=== PATIENT | male | born 1965 | race Caucasian/White ===

== ENCOUNTER 2017-02-24 22:31 | Emergency (ER) | payer OTHER ==
[2017-02-24 22:39] VITALS: BP 141/96; PULSE 76; RESP 16; TEMP 98.1; O2SAT 94
[2017-02-24] MEDS ORDERED: TDAP ADULT 0.5 ML INJ (BOOSTRIX) IM ONE (22:40)
--- NOTE | 2017-02-24 22:41 | EDPHY ---
H & P Stated Complaint: cut l index finger with band saw HPI/ROS: HPI CHIEF COMPLAINT: Left Index finger laceration HISTORY OF PRESENT ILLNESS: Patient very pleasant 51-year-old male, presents emergency room with a distal tip left index finger laceration after using a band saw this evening. He was cutting metal. Denies any other areas of injury. Tetanus shot is not up-to-date will need to be updated. Sustained a 2 cm distal tip left index finger laceration. Right-hand dominant. Patient declined x-ray here in the emergency room specifically declined x-ray left index finger for foreign body. Patient copiously washed out his wound prior to arrival. Past Medical History: No significant medical history Past Surgical History: No significant surgical history Social History: Denies daily use drugs alcohol tobacco products. Family History: Noncontributory ROS REVIEW OF SYSTEMS: A comprehensive 10 point review of systems is otherwise negative aside from elements mentioned in the history of present illness. Exam Constitutional triage nursing summary reviewed, vital signs reviewed, awake/ alert. Eyes normal conjunctivae and sclera, EOMI, PERRLA. HENT normal inspection, atraumatic, moist mucus membranes, no epistaxis, neck supple/ no meningismus, no raccoon eyes. Respiratory clear to auscultation bilaterally, normal breath sounds, no respiratory distress, no wheezing. Cardiovascular rate normal, regular rhythm, no murmur, no edema, distal pulses normal. Gastrointestinal soft, non-tender, no rebound, no guarding, normal bowel sounds, no distension, no pulsatile mass. Genitourinary no CVA tenderness. Musculoskeletal no midline vertebral tenderness, full range of motion, no calf swelling, no tenderness of extremities, no meningismus, good pulses, neurovascularly intact. Skin left index finger: 2 cm laceration present at the distal aspect of the left index finger. Very vascular. No arterial injury. No tendon injury. No obvious bony involvement. Wound was explored copiously no foreign body seen. Wound was copiously irrigated. Full range of motion. Neurovascular intact. No loss of sensation. Good cap refill. Neurologic awake, alert and oriented x 3, AAOx3, moves all 4 extremities equally, motor intact, sensory intact, CN II-XII intact, normal cerebellar, normal vision, normal speech. Psychiatric normal mood/affect. Heme/Lymph/Immune no lymphadenopathy. Differential Diagnosis: Includes but is not limited to in a particular order left index finger laceration, bony involvement, foreign body Medical Decision Making: Plan for this patient washout the wound copiously explored for foreign body, and suture close. Tetanus shot will additionally need to be updated. Recommend x-ray foreign body evaluation and bony vomit however patient has declined x-ray. Re-evaluation: Laceration Repair Procedure: Verbal Consent was obtained, Under sterile conditions, The patient had lidocaine with epinephrine used approximately 2ccs to local anesthetize the left index finger 2 cm Laceration. The wound was copiously irrigated with sterile fluid, the wound was explored for foreign bodies there were none visualized, the wound was explored with a sterile glove to the base. There are no deep structures involved, including no arterial injury. TWO 6.O PROLENE interrupted Sutures were placed in this patient's laceration. He had good close approximation of the wound edges. He Tolerated this well. 2301: Neurovascularly intact. Good cap refill. No foreign bodies visualized. Hemostasis appropriate. Patient is been dressed. And placed in a cage splint of his left index finger cage splint. For protection. Patient understands to have sutures removed 14 days. Watch closely for infection. Keep it protected. He understands return emergency room if there is any worsening symptoms questions or concerns. Source: Patient - Personal History Current Tetanus/Diphtheria Vaccine: No Current Tetanus Diphtheria and Acellular Pertussis (TDAP): No - Medical/Surgical History Hx Asthma: No Hx Chronic Respiratory Disease: No Hx Diabetes: No Hx Cardiac Disease: No Hx Renal Disease: No Hx Cirrhosis: No Hx Alcoholism: No Hx HIV/AIDS: No Hx Splenectomy or Spleen Trauma: No Other PMH: blepharospasm,med hx-kidney stones. surg-charito - Social History Smoking Status: Never smoked Constitutional: Initial Vital Signs Temperature (C) 36.7 C 02/24/17 22:38 Heart Rate 76 02/24/17 22:38 Respiratory Rate 16 02/24/17 22:38 Blood Pressure 141/96 H 02/24/17 22:38 O2 Sat (%) 94 02/24/17 22:38 O2 Delivery Mode Room Air Allergies/Adverse Reactions: No Known Allergies Allergy (Verified 07/06/15 08:36) Home Medications: Medication Instructions Recorded NK [No Known Home Meds] 02/24/17 Medical Decision Making - Data Points Medications Given: Discontinued Medications Diphtheria/Tetanus/Acell Pertussis (Boostrix) 0.5 ml IM .ONCE ONE Stop: 02/24/17 22:41 Last Admin: 02/24/17 22:43 Dose: 0.5 ml Departure - Departure Disposition: Home, Routine, Self-Care Clinical Impression: Laceration Condition: Good Instructions: Laceration (ED), Care For Your Stitches (ED) Additional Instructions: 1. Keep your wound clean, dry and protected. 2. Warm soapy water on it is fine after 48 hours. 3. Watch for signs of infection 4. Return to the emergency room to have your sutures out in 14 days. Referrals: Timmy Sultana, [Primary Care Provider] - As per Instructions
== END 2017-02-24 23:05 | disposition home or self-care (01) ==
LOC: CED 22:31
PROC: 0HQGXZZ Repair Left Hand Skin, External Approach (ICD-10-PCS; principal; 2017-02-24)
DX: S61.211A Laceration without foreign body of left index finger without damage to nail, initial encounter (principal); W31.2XXA Contact with powered woodworking and forming machines, initial encounter; Z23 Encounter for immunization
CPT/HCPCS: L3925

== ENCOUNTER 2017-08-31 07:18 | Emergency (ER) | payer OTHER ==
[2017-08-31 07:34] VITALS: RESP 14; TEMP 97.5
--- NOTE | 2017-08-31 07:43 | EDPHY ---
H & P Stated Complaint: RLQ pain and right flank pain for 1 day Time Seen by Provider: 08/31/17 07:38 HPI/ROS: CHIEF COMPLAINT: Right flank pain HISTORY OF PRESENT ILLNESS: Patient is a 51-year-old man with a history of kidney stones who comes to the emergency department complaining of right inguinal and flank pain that began last night. He states that he could not get comfortable. He felt nauseous but did not vomit. He states that the pain has not been as sharp as with previous kidney stones. He denies dysuria or frequency. No discharge or concern for STD. No history of abdominal or inguinal surgery. He states that the pain is now improved compared to last night. No fevers. No trauma. REVIEW OF SYSTEMS: Constitutional: denies: chills, fever, recent illness, recent injury EENTM: denies: blurred vision, double vision, nose congestion Respiratory: denies: cough, shortness of breath Cardiac: denies: chest pain, irregular heart rate, lightheadedness, palpitations Gastrointestinal/Abdominal: See HPI denies: diarrhea, vomiting, blood streaked stools Genitourinary: See HPI Musculoskeletal: denies: joint pain, muscle pain Skin: denies: lesions, rash, jaundice, bruising Neurological: denies: headache, numbness, paresthesia, tingling, dizziness, weakness Hematologic/Lymphatic: denies: blood clots, easy bleeding, easy bruising Immunologic/allergic: denies: HIV/AIDS, transplant EXAM: GENERAL: Well-appearing, well-nourished and in no acute distress. HEAD: Atraumatic, normocephalic. EYES: Pupils equal round and reactive to light, extraocular movements intact, sclera anicteric, conjunctiva are normal. ENT: TMs normal, nares patent, oropharynx clear without exudates. Moist mucous membranes. NECK: Normal range of motion, supple without lymphadenopathy or JVD. LUNGS: Breath sounds clear to auscultation bilaterally and equal. No wheezes rales or rhonchi. HEART: Regular rate and rhythm without murmurs, rubs or gallops. ABDOMEN: Soft, nontender, normoactive bowel sounds. No guarding, no rebound. No masses appreciated. BACK: No CVA tenderness, no spinal tenderness, step-offs or deformities EXTREMITIES: Normal range of motion, no pitting or edema. No clubbing or cyanosis. NEUROLOGICAL: Cranial nerves II through XII grossly intact. Normal speech, normal gait. 5/5 strength, normal movement in all extremities, normal sensation PSYCH: Normal mood, normal affect. SKIN: Warm, dry, normal turgor, no visible rashes or lesions. Source: Patient Exam Limitations: No limitations - Personal History Current Tetanus Diphtheria and Acellular Pertussis (TDAP): Yes Tetanus Vaccine Date: 2017 - Medical/Surgical History Hx Asthma: No Hx Chronic Respiratory Disease: No Hx Diabetes: No Hx Cardiac Disease: No Hx Renal Disease: No Hx Cirrhosis: No Hx Alcoholism: No Hx HIV/AIDS: No Hx Splenectomy or Spleen Trauma: No Other PMH: blepharospasm,med hx-kidney stones. surg-charito - Family History Significant Family History: No pertinent family hx - Social History Smoking Status: Never smoked Alcohol Use: Sober Drug Use: None Constitutional: Initial Vital Signs Temperature (C) 36.4 C 08/31/17 07:32 Heart Rate 72 08/31/17 07:32 Respiratory Rate 14 08/31/17 07:32 Blood Pressure 130/85 H 08/31/17 07:32 O2 Sat (%) 93 08/31/17 07:32 O2 Delivery Mode Room Air Allergies/Adverse Reactions: No Known Allergies Allergy (Verified 08/31/17 07:31) Home Medications: Medication Instructions Recorded NK [No Known Home Meds] 08/31/17 Medical Decision Making - Diagnostics Imaging Results: Imaging Impressions Abdomen CT 08/31/17 07:54 Impression: 1. Nonobstructive right nephrolithiasis. 2. Interval resolution of distal left ureteral calculus. 3. Scattered diverticular disease without evidence of acute diverticulitis. Findings and recommendations discussed with MARTHA ZARAGOZA at 9:03 AM hour, . Imaging: Discussed imaging studies w/ call center assistant Radiologist ED Course/Re-evaluation: 7:55 a.m. the patient appears comfortable. Urinalysis does not show blood . We discussed what this could mean. We decided to order CT contrast. He is declining pain or nausea medicine. 9:15 a.m. We discussed the CT and lab results which are very reassuring. The patient is slightly anemic. He states that he has had blood in his stool in the past but not recently. He had a colonoscopy 5 years ago several polyps were found. I encouraged him to have his primary recheck his blood work and possibly have another colonoscopy. He understands and agrees with this plan. His symptoms have resolved. I suspect that he may have passed a kidney stone last night. Patient is reassured and declines further workup or testing at this time. Differential Diagnosis: Partial list of the Differential diagnosis considered include but were not limited to; kidney stone, urinary tract infection and although unlikely based on the history and physical exam, I also considered STD, appendicitis, diverticulitis, obstruction, hernia, testicular torsion. I discussed these differential diagnoses and the plan with the patient as well as the usual and expected course. The patient understands that the diagnosis is provisional and that in medicine we are not always correct and that further workup is often warranted. Usual and customary warnings were given. All of the patient's questions were answered. The patient was instructed to return to the emergency department should the symptoms at all worsen or return, otherwise to followup with the physician as we discussed. - Data Points Laboratory Results: Laboratory Results 08/31/17 07:50 08/31/17 07:50 08/31/17 08/31/17 08/31/17 07:50 07:50 07:50 WBC 4.18 10^3/uL 10^3/uL (3.80-9.50) RBC 4.31 10^6/uL L 10^6/uL (4.40-6.38) Hgb 13.4 g/dL L g/dL (13.7-17.5) Hct 37.8 % L % (40.0-51.0) MCV 87.7 fL fL (81.5-99.8) MCH 31.1 pg pg (27.9-34.1) MCHC 35.4 g/dL g/dL (32.4-36.7) RDW 11.9 % % (11.5-15.2) Plt Count 227 10^3/uL 10^3/uL (150-400) MPV 9.0 fL fL (8.7-11.7) Neut % (Auto) 66.6 % % (39.3-74.2) Lymph % (Auto) 21.5 % % (15.0-45.0) [place] % (Auto) 8.4 % % (4.5-13.0) Eos % (Auto) 2.6 % % (0.6-7.6) Baso % (Auto) 0.7 % % (0.3-1.7) Nucleat RBC Rel Count 0.0 % % (0.0-0.2) Absolute Neuts (auto) 2.78 10^3/uL 10^3/uL (1.70-6.50) Absolute Lymphs (auto) 0.90 10^3/uL L 10^3/uL (1.00-3.00) Absolute Monos (auto) 0.35 10^3/uL 10^3/uL (0.30-0.80) Absolute Eos (auto) 0.11 10^3/uL 10^3/uL (0.03-0.40) Absolute Basos (auto) 0.03 10^3/uL 10^3/uL (0.02-0.10) Absolute Nucleated RBC 0.00 10^3/uL 10^3/uL (0-0.01) Immature Gran % 0.2 % % (0.0-1.1) Immature Gran # 0.01 10^3/uL 10^3/uL (0.00-0.10) Sodium 140 mEq/L mEq/L (135-145) Potassium 3.8 mEq/L mEq/L (3.5-5.2) Chloride 107 mEq/L mEq/L (97-110) Carbon Dioxide 22 mEq/l mEq/l (22-31) Anion Gap 11 mEq/L mEq/L (8-16) BUN 15 mg/dL mg/dL (7-23) Creatinine 0.9 mg/dL mg/dL (0.7-1.3) Estimated GFR > 60 Glucose 99 mg/dL mg/dL (70-100) Calcium 9.5 mg/dL mg/dL (8.5-10.4) Total Bilirubin 0.9 mg/dL mg/dL (0.1-1.4) Conjugated Bilirubin 0.3 mg/dL mg/dL (0.0-0.5) Unconjugated Bilirubin 0.6 mg/dL mg/dL (0.0-1.1) AST 26 IU/L IU/L (17-59) ALT 42 IU/L IU/L (21-72) Alkaline Phosphatase 54 IU/L IU/L (38-126) Total Protein 7.2 g/dL g/dL (6.3-8.2) Albumin 4.3 g/dL g/dL (3.5-5.0) Lipase 75 IU/L IU/L (23-300) Urine Color Urine Appearance Urine pH Ur Specific [place] Urine Protein Urine Ketones Urine Blood Urine Nitrate Urine Bilirubin Urine Urobilinogen Ur Leukocyte Esterase Urine RBC NONE SEEN /hpf /hpf (0-3) Urine WBC 0-1 /hpf /hpf (0-3) Ur Epithelial Cells TRACE /lpf /lpf (NONE-1+) Urine Mucus TRACE /lpf /lpf (NONE-1+) Urine Glucose 08/31/17 07:35 WBC RBC Hgb Hct MCV MCH MCHC RDW Plt Count MPV Neut % (Auto) Lymph % (Auto) [place] % (Auto) Eos % (Auto) Baso % (Auto) Nucleat RBC Rel Count Absolute Neuts (auto) Absolute Lymphs (auto) Absolute Monos (auto) Absolute Eos (auto) Absolute Basos (auto) Absolute Nucleated RBC Immature Gran % Immature Gran # Sodium Potassium Chloride Carbon Dioxide Anion Gap BUN Creatinine Estimated GFR Glucose Calcium Total Bilirubin Conjugated Bilirubin Unconjugated Bilirubin AST ALT Alkaline Phosphatase Total Protein Albumin Lipase Urine Color YELLOW Urine Appearance CLEAR Urine pH 6.0 (5.0-7.5) Ur Specific [place] 1.010 (1.002-1.030) Urine Protein NEGATIVE (NEGATIVE) Urine Ketones NEGATIVE (NEGATIVE) Urine Blood NEGATIVE (NEGATIVE) Urine Nitrate NEGATIVE (NEGATIVE) Urine Bilirubin NEGATIVE (NEGATIVE) Urine Urobilinogen 0.2 EU EU (0.2-1.0) Ur Leukocyte Esterase NEGATIVE (NEGATIVE) Urine RBC Urine WBC Ur Epithelial Cells Urine Mucus Urine Glucose NEGATIVE (NEGATIVE) Medications Given: Discontinued Medications Sodium Chloride (Ns) 1,000 mls @ 0 mls/hr IV ONCE ONE PRN Reason: Wide Open Stop: 08/31/17 08:00 Last Admin: 08/31/17 08:00 Dose: 1,000 mls Sodium Chloride (Ns) 1,000 mls @ 0 mls/hr IV EDNOW ONE; Wide Open PRN Reason: Protocol Stop: 08/31/17 07:56 Last Admin: 08/31/17 08:12 Dose: Not Given Departure - Departure Disposition: Home, Routine, Self-Care Clinical Impression: Right lower quadrant abdominal pain Condition: Fair Instructions: Abdominal Pain (ED) Referrals: Timmy Sultana DO [Primary Care Provider] - 5-7 days, call for appt.
[2017-08-31] MEDS ORDERED: NS 1,000 ML IV ONE ×2 (07:55→07:59)
[2017-08-31 08:13] LABS: PLATELET COUNT 227 10^3/uL (150-400)
[2017-08-31] MEDS ORDERED: IPRATROPIUM/ALBUTEROL 3 ML DEYVIAL IH ONE (08:35)
[2017-08-31] MEDS ORDERED: IOPAMIDOL (ISOVUE-300) 100 ML BTL ONE (08:37)
[2017-08-31 09:33] VITALS: BP 128/82; PULSE 76; O2SAT 94
== END 2017-08-31 09:31 | disposition home or self-care (01) ==
LOC: CED 07:18
DX: R10.31 Right lower quadrant pain (principal); E86.9 Volume depletion, unspecified
CPT/HCPCS: 74177-PO; 80048-PO; 80076-PO; 81003-PO; 81015-PO; 83690-PO; 85025-PO; Q9967